=== PATIENT | female | born 1995 | race Caucasian/White ===

== ENCOUNTER 2020-02-17 12:54 | Day surgery (SDC) | payer BC ==
[2020-02-17 14:38] VITALS: BMI 29.7
[2020-02-17 14:45] LABS: Amnisure Test No Membranes Rupture (No Rupture)
[2020-02-17 14:46] LABS: Amnisure Internal Control QC ACCEPTABLE (ACCEPTABLE)
[2020-02-17] MEDS ORDERED: hydrALAZINE 20 MG/ML VIAL SLOW IVP PRN (14:56)
--- NOTE | 2020-02-17 15:23 | HP ---
TIME: The time of evaluation roughly 1500 hours, is now 1504. LOCATION: Labor and Delivery Triage. This is a patient of Dr. Louise. CHIEF COMPLAINT: Possible leakage of fluid. HISTORY OF PRESENT ILLNESS: This is a 24-year-old, G1, P0, at 38 weeks with a due date of March 02, here for possible slight leakage of fluid. She denies vaginal bleeding or recent trauma or any other complication. She denies any headaches, visual changes, or decrease in movement. She denies any fever or cough. REVIEW OF SYSTEMS: Complete review of systems was checked and is otherwise negative unless specified in the HPI. PAST MEDICAL HISTORY: Negative. ALLERGIES: NONE. PAST SURGICAL HISTORY: Bilateral knee surgery. OBSTETRIC HISTORY: She is a G1, P0. SOCIAL HISTORY: Negative for alcohol, tobacco, or drug use. PHYSICAL EXAMINATION: VITAL SIGNS: Her blood pressure is 115/70, pulse is in the 70s, respirations are 18 and unlabored, and her temperature is 98.3. GENERAL: She is in no acute distress. ABDOMEN: Soft and nontender. Sterile speculum exam is currently pending by me. She did have an exam performed by the RN before my evaluation, which showed that she was 3 cm dilated, 80% effaced, -2 station, which was similar to what she was on a clinic visit based on her report. ASSESSMENT: This is a 24-year-old, G1, P0, at early term (38 weeks), here for possible leakage of fluid. AmniSure has been sent and was negative. It is informed to note the two AmniSure's were sent, because the first one was not able to be read as the Q-tip swab remained in the container and lab requested a repeat. The repeat was negative. PLAN: No gross evidence of rupture, but I will perform a sterile speculum exam after this dictation. Job ID: [id number]
--- NOTE | 2020-02-17 20:03 | PDOC.EVN ---
Event Note - Event Note Event Note: phenergan 12.5mg po tolerated well, will give the other 12.5mg
[2020-02-17] MEDS ORDERED: Promethazine 25 MG TAB PO SCH (20:15)
--- NOTE | 2020-02-19 05:54 | PRG ---
DATE OF SERVICE: 02/17/2020 STERILE SPECULUM EXAM: In brief, I gave the patient informed consent on sterile speculum examination and reviewed the procedure with her. I performed a sterile spec exam without any lubrication to prevent conflicting images of fluid. I performed a Valsalva and a cough maneuver and there was no evidence of leakage of fluid per os or collecting in the posterior fornix. She did have a yeast infection, but she is asymptomatic. She denies itching or burning in the vaginal area. I did offer her treatment for this with either an oral medication (Diflucan) or vaginal treatment. As she is asymptomatic, she elected to forego treatment at this time. Job ID: [id number]
== END 2020-02-17 15:33 | disposition home health service (06) ==
LOC: L&D/OP 12:54
PROVIDERS: ATTEND Obstetrics & Gynecology
DX: O99.89 Other specified diseases and conditions complicating pregnancy, childbirth and the puerperium (principal); N89.8 Other specified noninflammatory disorders of vagina; O98.813 Other maternal infectious and parasitic diseases complicating pregnancy, third trimester; B37.9 Candidiasis, unspecified; Z3A.38 38 weeks gestation of pregnancy
CPT/HCPCS: 84112

== ENCOUNTER 2020-02-20 20:15 | Inpatient (IN) | payer BC ==
[~2020-02-20 20:15] MED LIST: EPHEDRINE 25 MG/5 ML SYRINGE ONE
[2020-02-20] MEDS ORDERED: Butorphanol Tartrate 1 MG/ML VIAL SLOW IVP PRN (21:18)
[2020-02-20] MEDS ORDERED: hydrALAZINE 20 MG/ML VIAL SLOW IVP PRN (21:18)
[2020-02-20] MEDS ORDERED: Promethazine HCl 25 MG/ML VIAL IM PRN ×2 (21:18→23:01)
[2020-02-20] MEDS ORDERED: HYDROcodone/Acetaminophen 5/325 mg Tablet PO PRN (21:18)
[2020-02-20] MEDS ORDERED: Ibuprofen 800 MG TAB PO PRN (21:18)
[2020-02-20] MEDS ORDERED: Ondansetron PF 4 MG/2 ML Vial IVP PRN ×2 (21:18→23:01)
[2020-02-20] MEDS ORDERED: Lidocaine 1% (PF) 30 ML VIAL SC PRN (21:18)
[2020-02-20] MEDS ORDERED: NS / Oxytocin 40 units/1000ml 1,000 ML IV PRN (21:18)
[2020-02-20 21:19] VITALS: BMI 29.7
[2020-02-20] MEDS: Lactated Ringer's 1,000 ML IV SCH (21:28)
[2020-02-20] MEDS ORDERED: Lactated Ringer's 1,000 ML IV SCH (21:30)
[2020-02-20] MEDS ORDERED: Fentanyl 4 mcg/Bup 0.1% Cadd 100 ML ONE (21:34)
[2020-02-20 21:46] LABS: Hemoglobin 12.3 g/dL (12.0-16.0); Mean Corpuscular HGB CONC 34.1 g/dL (32.0-36.0); Mean Corpuscular Hemoglobin 31.9 pg (27.0-31.0); Mean Corpuscular Volume 93.5 fL (78.0-98.0); Mean Platelet Volume 8.2 fL (7.4-10.4); Platelet Count 211 thou/uL (130-400); RBC Distribution Width 11.5 % (11.5-14.5); Red Blood Cell (RBC) Count 3.86 mill/uL (4.20-5.40); White Blood Cell (WBC) Count 17.4 thou/uL (4.8-10.8)
[2020-02-20 22:09] LABS: Syphilis Antibody Nonreactive (Nonreactive); Syphilis Antibody Index 0.04 S/CO (<1.00 Non-Reactive)
[2020-02-20 22:28] LABS: HBSAg Index 0.21 S/CO (0-0.99); Hep B Surf Ag Non-Reactive S/CO (NonReactive)
[2020-02-20] MEDS ORDERED: diphenhydrAMINE 50 MG/ML VIAL IVP PRN (23:01)
[2020-02-20] MEDS ORDERED: Naloxone HCl 0.4 mg/ml Vial IVP PRN ×2 (23:01)
[2020-02-20] MEDS ORDERED: Acetaminophen 325 MG TAB PO PRN (23:01)
[2020-02-20] MEDS ORDERED: Lactated Ringer's 500 ML IV PRN (23:01)
[2020-02-20] MEDS ORDERED: EPHEDRINE 25 MG/5 ML SYRINGE SLOW IVP PRN (23:01)
[2020-02-20] MEDS ORDERED: Communication Order-Pharmacy FS SCH (23:15)
[2020-02-20] MEDS ORDERED: Fentanyl 4 mcg/Bupivacaine 0.1% Cassette 100 ML EPIDURAL SCH (23:15)
[2020-02-21] MEDS ORDERED: Fentanyl 4 mcg/Bup 0.1% Cadd 100 ML ONE (05:39)
[2020-02-21] MEDS: Lactated Ringer's 1,000 ML IV SCH (06:34)
[2020-02-21] MEDS ORDERED: Lidocaine 1% (PF) 30 ML VIAL ONE (07:20)
[2020-02-21] MEDS ORDERED: NS / Oxytocin 40 units/1000ml 1,000 ML ONE (07:20)
[2020-02-21] MEDS ORDERED: Ondansetron PF 4 MG/2 ML Vial IVP PRN (12:37)
[2020-02-21] MEDS ORDERED: Milk Of Magnesia 30 ML UDCUP PO PRN (12:37)
[2020-02-21] MEDS ORDERED: Misoprostol 200 MCG TAB VAG PRN (12:37)
[2020-02-21] MEDS ORDERED: Lanolin Ointment 7 GM TUBE TOP PRN (12:37)
[2020-02-21] MEDS ORDERED: Acetaminophen/Codeine 30-300mg Tablet PO PRN ×2 (12:37)
[2020-02-21] MEDS ORDERED: Zolpidem Tartrate 5 MG TAB PO PRN (12:37)
[2020-02-21] MEDS ORDERED: hydrALAZINE 20 MG/ML VIAL SLOW IVP PRN (12:37)
[2020-02-21] MEDS ORDERED: Benzocaine-Menthol 82.5 ML CAN TOP PRN (12:37)
[2020-02-21] MEDS ORDERED: Preparation H Ointment 28 GM TUBE PR PRN (12:37)
[2020-02-21] MEDS ORDERED: Bisacodyl 10 MG SUPP PR PRN (12:37)
[2020-02-21] MEDS ORDERED: diphenhydrAMINE 25 MG CAP PO PRN (12:37)
[2020-02-21] MEDS ORDERED: NS / Oxytocin 40 units/1000ml 1,000 ML IV SCH (12:45)
[2020-02-21] MEDS: Ferrous Sulfate 325 MG TAB PO SCH (14:03)
[2020-02-21] MEDS: Ibuprofen 800 MG TAB PO SCH ×3 (16:27→23:13)
[2020-02-21] MEDS: Docusate Calcium (SURFAK) 240 MG CAP PO SCH (20:34)
[2020-02-22] MEDS: Ibuprofen 800 MG TAB PO SCH ×3 (05:09→21:17)
[2020-02-22] MEDS: Ferrous Sulfate 325 MG TAB PO SCH ×2 (07:24→13:07)
[2020-02-22] MEDS: Docusate Calcium (SURFAK) 240 MG CAP PO SCH ×2 (08:36→21:17)
[2020-02-22] MEDS: Prenatal Vitamin 1 TAB PO SCH (08:36)
[2020-02-22] MEDS ORDERED: Adacel (T-DAP) 0.5 ML SYRINGE IM ONE (09:00)
[2020-02-23] MEDS: Ibuprofen 800 MG TAB PO SCH (04:57)
[2020-02-23 08:18] VITALS: BP 106/64; TEMP 98.3
[2020-02-23] MEDS: Prenatal Vitamin 1 TAB PO SCH (09:08)
[2020-02-23] MEDS: Docusate Calcium (SURFAK) 240 MG CAP PO SCH (09:08)
[2020-02-23] MEDS: Ferrous Sulfate 325 MG TAB PO SCH (09:08)
== END 2020-02-23 13:00 | disposition home or self-care (01) | DRG 768 ==
LOC: L&D/OP 20:15 → L&D 20:50 → 3SW 02-21 11:38
PROVIDERS: ADMIT Obstetrics & Gynecology; ATTEND Obstetrics & Gynecology
PROC: 10E0XZZ Delivery of Products of Conception, External Approach (ICD-10-PCS; principal; 2020-02-20)
PROC: 0DQR0ZZ Repair Anal Sphincter, Open Approach (ICD-10-PCS; 2020-02-20)
PROC: 3E0234Z Introduction of Serum, Toxoid and Vaccine into Muscle, Percutaneous Approach (ICD-10-PCS; 2020-02-20)
DX: O70.20 Third degree perineal laceration during delivery, unspecified (principal); Z37.0 Single live birth; Z3A.38 38 weeks gestation of pregnancy; Z23 Encounter for immunization
CPT/HCPCS: 36415; 51702; 84112; 85027; 85461; 86780; 86850; 86870; 86900; 86901; 87340; 90384; 90715; 96372; 99285; J2001; J2405